=== PATIENT | male | born 1980 | race Caucasian/White ===

== ENCOUNTER 2016-12-21 05:34 | Emergency (ER) | payer OTHER ==
[2016-12-21 05:41] VITALS: BP 131/74; PULSE 90; RESP 16; TEMP 97.7
--- NOTE | 2016-12-21 06:06 | ED ---
ENT HPI - General Chief complaint: Dental/Oral Stated complaint: dental pain Time Seen by Provider: 12/21/16 06:05 Source: patient Mode of arrival: ambulatory Limitations: no limitations - History of Present Illness Initial comments: Patient is a 36-year-old man complaining of left mandibular dental pain getting worse over the past 3-4 days. Patient states that it had started coming on after he was eating an apple and believes a piece of his tooth broke. He states that since that time the tooth has become very sensitive to chewing, 2 temperature, and also when he breathes. Patient denies significant swelling of the neck or mandible. Denies fever or chills. No palpitations. MD complaint: tooth pain Onset/Timin -: days(s) Location: tooth # (17) Severity: severe Quality: aching Consistency: constant Improves with: none Worsens with: none Context- Dental: history of dental caries Associated Symptoms: toothache - Related Data Previous Rx's Medication Instructions Recorded Hydrocodone/Acetaminophen [[place] 1 each PO Q6HR PRN #20 tab 12/21/16 5-325] Ibuprofen [Motrin] 600 mg PO Q8HR PRN #20 tab 12/21/16 Penicillin V Potassium [Pen Vee K] 500 mg PO QID #28 tab 12/21/16 Allergies Allergy/AdvReac Type Severity Reaction Status Date / Time No Known Allergies Allergy Verified 12/21/16 05:41 Review of Systems ROS Statement: Those systems with pertinent positive or pertinent negative responses have been documented in the HPI. ROS Other: All systems not noted in ROS Statement are negative. Constitutional: Denies: fever, chills Eyes: Denies: eye pain ENT: Reports: dental pain. Denies: throat pain Respiratory: Denies: cough, dyspnea Neurological: Denies: headache Past Medical History Past Medical History: No Reported History History of Any Multi-Drug Resistant Organisms: None Reported Past Surgical History: Orthopedic Surgery Additional Past Surgical History / Comment(s): left hand sx Past Psychological History: No Psychological Hx Reported Smoking Status: Current every day smoker Past Alcohol Use History: None Reported Past Drug Use History: None Reported General Exam Limitations: no limitations General appearance: alert, in no apparent distress Head exam: Present: atraumatic, normocephalic Eye exam: Present: normal appearance, EOMI. Absent: scleral icterus, conjunctival injection ENT exam: Present: mucous membranes moist, other (Moderate dental caries. There is fractured a tooth #17. No abscess.) Neck exam: Present: normal inspection, full ROM. Absent: tenderness, meningismus, lymphadenopathy Course Vital Signs 12/21/16 05:38 Temperature 97.7 F Pulse Rate 90 Respiratory 16 Rate Blood Pressure 131/74 O2 Sat by Pulse 96 Oximetry Disposition Clinical Impression: Fracture of tooth, Toothache Disposition: HOME SELF-CARE Condition: Good Instructions: Toothache (ED) Prescriptions: Hydrocodone/Acetaminophen [[place] 5-325] 1 each PO Q6HR PRN #20 tab PRN Reason: Pain Ibuprofen [Motrin] 600 mg PO Q8HR PRN #20 tab PRN Reason: Pain Penicillin V Potassium [Pen Vee K] 500 mg PO QID #28 tab Referrals: Gurdeep Jefferson MD [Primary Care Provider] - 1-2 days
[2016-12-21] MEDS ORDERED: IBUPROFEN 600 MG TAB PO STA (06:10)
[2016-12-21] MEDS ORDERED: PENICILLIN V POTASSIUM 250 MG TAB PO STA (06:11)
[2016-12-21] MEDS ORDERED: HYDROcodone/APAP 5-325MG 1 EACH TAB PO STA (06:11)
== END 2016-12-21 06:21 | disposition home or self-care (01) ==
LOC: EC 05:34
DX: S02.5XXA Fracture of tooth (traumatic), initial encounter for closed fracture (principal); K02.9 Dental caries, unspecified; F17.200 Nicotine dependence, unspecified, uncomplicated; X58.XXXA Exposure to other specified factors, initial encounter
CPT/HCPCS: 99283